=== PATIENT | female | born 1995 | race Caucasian/White ===

== ENCOUNTER 2019-03-09 22:52 | Emergency (ER) | payer SELFPAY ==
[~2019-03-09] VITALS: Ht 185.4 cm; Wt 142.9 kg
[2019-03-09 22:58] VITALS: Ht 185.4 cm; Wt 142.9 kg
[2019-03-09] MEDS ORDERED: ROBAXIN500 MG PO (23:06)
[2019-03-10 00:06] LABS: HCG URINE NEGATIVE (NEGATIVE)
[2019-03-10 02:02] VITALS: BP 142/84
== END 2019-03-10 02:02 | disposition home or self-care (01) ==
LOC: D.ER 22:52
PROVIDERS: Family Medicine
DX: S16.1XXA Strain of muscle, fascia and tendon at neck level, initial encounter (principal); W18.2XXA Fall in (into) shower or empty bathtub, initial encounter; Y93.E1 Activity, personal bathing and showering; Y92.012 Bathroom of single-family (private) house as the place of occurrence of the external cause